=== PATIENT | female | born 1975 | race Caucasian/White ===

== ENCOUNTER 2017-12-10 06:30 | Day surgery (SDC) | payer OTHER ==
[~2017-12-10] VITALS: Ht 170.2 cm; Wt 86.0 kg
[~2017-12-10 06:30] MED LIST: CYCL10TA PO; PERC5TAB12 PO; TRAZ100T10 PO
[2017-12-10] MEDS ORDERED: LACTATED RINGER'S 1000 ML INJ 1,000 ML IV ONE (06:31)
[2017-12-10] MEDS ORDERED: GLYCOPYRROLATE 1 MG/5 ML SYRINGE IV PUSH ONE (06:31)
[2017-12-10] MEDS ORDERED: NEOSTIGMINE 5 MG/5 ML SYRINGE IV PUSH ONE (06:31)
[2017-12-10] MEDS ORDERED: DEXAMETHASONE SOD PHOS 4 MG/ML VIAL IV ONE (06:31)
[2017-12-10] MEDS ORDERED: ONDANSETRON HCL 4 MG/2 ML VIAL IV PUSH ONE (06:31)
[2017-12-10] MEDS ORDERED: ROCURONIUM INJ 50 MG/5 ML SYRINGE IV PUSH ONE (06:31)
[2017-12-10] MEDS ORDERED: PROPOFOL 200 MG/20 ML AMP IV ONE (06:31)
[2017-12-10] MEDS ORDERED: LIDOCAINE HCL 1% PF 5 ML SYRINGE OTHER ONE (06:31)
[2017-12-10] MEDS ORDERED: NORMOSOL R INJ 1,000 ML IV ONE (06:31)
[2017-12-10] MEDS ORDERED: CHLORHEXIDINE GLUCONATE 2 % 1 PACK (2 CLOTHS) TOPICAL PRN (07:00)
[2017-12-10] MEDS ORDERED: LACTATED RINGER'S 1000 ML IV PRN (07:00)
[2017-12-10] MEDS ORDERED: SODIUM CHLORID 0.9% 500 ML IV PRN (07:00)
[2017-12-10] MEDS ORDERED: POVIDONE IODINE 5% (ANTISEPSIS KIT) 4 APPLICATIONS EACH NARE PRN (07:00)
[2017-12-10] MEDS ORDERED: ceFAZolin 2 GM/DEX PREMIX 50 ML IV SCH (07:00)
[2017-12-10] MEDS ORDERED: METOPROLOL TARTRATE 25 MG TAB PO PRN (07:00)
[2017-12-10] MEDS ORDERED: THROMBIN (TOPICAL) 5,000 UNIT VIAL ONE (07:04)
[2017-12-10] MEDS ORDERED: GELFOAM SIZE 100 ONE (07:04)
[2017-12-10] MEDS ORDERED: GENTAMICIN SULFATE 80 MG/2 ML VIAL ONE (07:04)
[2017-12-10] MEDS ORDERED: ACETAMINOPHEN 1000 MG/100 ML 100 ML IV ONE (07:24)
[2017-12-10] MEDS ORDERED: PROPOFOL 500 MG/50 ML INJ 100 ML ONE (07:25)
[2017-12-10] MEDS ORDERED: HYDROmorphone HCL PF 2 MG/ML VIAL ONE (07:25)
[2017-12-10] MEDS ORDERED: VANCOMYCIN 1000 MG/NS 250 ML ON-CALL IV SCH ×2 (07:30)
[2017-12-10] MEDS: SODIUM CHLOR 0.9% 1000 ML INJ 1,000 ML IV SCH ×2 (11:13→20:25)
[2017-12-10] MEDS ORDERED: RESP: ALBUTEROL 2.5 MG/3 ML NEB (PRN) INH (11:15)
[2017-12-10] MEDS ORDERED: MORPHINE SULFATE 4 MG/ML INJ IV PUSH PRN ×2 (11:15)
[2017-12-10] MEDS ORDERED: ACETAMINOPHEN/HYDROcodone 325 MG/10 MG TAB PO PRN (11:15)
[2017-12-10] MEDS ORDERED: MAGNESIUM HYDROXIDE SUSP 30 ML CUP PO PRN (11:15)
[2017-12-10] MEDS ORDERED: CYCLOBENZAPRINE HCL 10 MG TAB PO PRN (11:15)
[2017-12-10] MEDS ORDERED: MENTHOL LOZENGE BUCCAL PRN (11:15)
[2017-12-10] MEDS ORDERED: ceFAZolin 2 GM PREMIX 50 ML IV SCH (11:15)
[2017-12-10] MEDS ORDERED: ACETAMINOPHEN 325 MG TAB PO PRN (11:15)
[2017-12-10] MEDS ORDERED: cloNIDine HCL 0.1 MG TAB PO/NG PRN (11:15)
[2017-12-10] MEDS ORDERED: PROMETHAZINE INJ 25 MG/ML VIAL IM PRN (11:15)
[2017-12-10] MEDS: DEXAMETHASONE SOD PHOS 4 MG/ML VIAL IV PUSH SCH ×2 (12:00→18:04)
[2017-12-10] MEDS ORDERED: MIDAZOLAM HCL 2 MG/2 ML VIAL ONE (12:18)
--- NOTE | 2017-12-10 12:33 | PD.OP ---
Operative Report Date of Surgery: Dec 10, 2017 Preoperative Diagnosis: C4-5. C5-6 disk herniationa Postoperative Diagnosis: C4-5. C5-6 disk herniationa Procedure: C4-5. C5-6 anterior cervical discectomy and arthroplasty using Mobi C Anesthesia: general Surgeon: Sotero Cesar Switchboard Wire Worker Helper(s): Meredith Carbajal Operation and Findings: INDICATIONS FOR THE PROCEDURE Ms Ms Moss is a 42 year-old female who presented with intractable neck pain and clinical evidence of C5 and C6 upper extremity radiculopathy. She was found to have disc herniations causing mass effect on the neurovascular structures. She failed maximum nonsurgical management including multiple modalities of conservative treatment as well as pain management interventions by an interventional pain specialist. A surgical decompression and arthroplasty were indicated. The [id number] details of the procedure, indications, alternatives, risks and potential complications were fully discussed with the patient. She fully understood. All The questions were answered. No guarantees were given. The patient voiced requesting the procedure and provided informed consents. She was offered the alternative of delaying the procedure and continuing with nonsurgical management. DETAILS OF THE SURGICAL PROCEDURE After the induction of general anesthesia, endotracheal intubation was performed. A Aparicio catheter, bilateral CATY hose, and sequential compression devices were placed and kept throughout the procedure. The patient was positioned supine on a Irvin table with the head over a gel doughnut. All pressure points were carefully padded with egg crate mattress. The eyes were tapped shut after ointment was applied by the anesthesiologist to prevent corneal abrasion. A Cristal hugger was placed over the exposed lower body to maintain control of the core body temperature. The electrophysiological team placed the needles and electrodes in their proper location and baseline SSEP's and motor evoked potentials were registered. The anterior cervical region was prepped and draped in the usual sterile fashion. A localizing x-ray was performed with a C-arm. The surgical procedure was performed in several steps as follow: SURGICAL APPROACH A skin incision was made along the middle cervical crease with a #10 blade. The dissection was carried out through the platysma exposing the sternocleidomastoid muscle. The cervical spine was approached following the fascial layers of the neck just medial to the anterior border of the sternocleidomastoid and carotid sheath by a combination of sharp and dull dissection. The omohyoid muscle was identified and carefully dissected laterally and the deep cervical fascia was carefully opened. The longus colli muscles were retracted to each side of the midline. A marker was placed at the disc space C5-6 and a cross-table lateral x-ray performed with a C-arm. SURGICAL DECOMPRESSION at C4-5 In order to decompress the anterior surface of the spinal cord it was necessary to preform a microsurgical resection of the disk. At this point in the procedure the operating microscope was draped in the usual sterile fashion and brought to the field. The rest of the surgical procedure was performed using microdissection technique with the exception of the closure. Under the operative microscopic, an anterior osteophytic spur was carefully removed using the leksell, and a self-retaining retractor was placed underneath the longus colli muscle. The annulus at C4-5 was incised with a #15 blade and microdiscectomy was then carefully carried out using angled curets and pituitary forceps. The patient had a posterior disk herniation which was producing mass affect on the anterior surface of the dural sac. This was carefully resected with a think foot plate 2mm kerrison under high magnification. The posterior longitudinal ligament was then elevated with an angled curet and incised with a 15 bladed knife. A careful resection of the posterior longitudinal ligament was carried out using a thin footplate 2 mm Kerrison. The decompression was then carried out laterally, and a bilateral foraminotomy was performed with a 2mm thin foot Kerrison. Then the vertebral bodies above and below the disk space were undercut using a 2 mm thin foot Kerrison. The epidural space was the systematically assessed with a nerve hook in search for disk fragments. An excellent decompression was achieved in both, the dural sac and bilateral exiting nerve roots. The incision was then irrigated with a large amount of antibiotic solution INTERBODY ARTHROPLASTY at C4-5 In order to avoid collapse of the disk space which would result in bilateral foraminal stenosis, and in order to maintain disk space height and function minimally development of adjacent level degeneration, it was necessary to place an interbody device. At this point of the procedure, gentle distraction was applied. The size of the interbody device was then assessed using a trial, and a cross table xray was done for confirmation of appropriate size and position of the device. Then the disk space was irrigated with antibiotic solution, and a 15mm by 5mm Mobi C artificial disk was carefully impacted into the disc space C4-5. An excellent position of the device was achieved. This was confirmed anatomically by feeling the space posterior to the implant and distance to the anterior surface of the dural sac. Radiological confirmation of the position was performed with a cross table AP and lateral X-ray views, performed with the C-arm. SURGICAL DECOMPRESSION AT 5-C6 At C5-6 an anterior osteophytic spur was carefully removed using the Leksell, and a self-retaining retractor was placed underneath the longus colli muscle. The annulus AT c6-7 was incised with a #15 blade and microdiscectomy was then carefully carried out using angled curets and pituitary forceps. The patient had a osteophitic spurr with a foraminal disk herniation at 5-6 which was producing mass affect on the exiting nerve root. This was carefully dissected with a nerve hock and resected with a think foot plate 2 mm Kerrison under high magnification. The posterior longitudinal ligament was then elevated with an angled curet and incised with a 15 bladed knife. A careful resection of the posterior longitudinal ligament was carried out using a thin footplate 2 mm Kerrison. A disk herniation was found causing mechanical compression over the exiting C6 nerve root. The decompression was then carried out laterally, and a bilateral foraminotomy was performed with a 2 mm thin foot Kerrison. The epidural space was the systematically assessed with a nerve hook in search for disk fragment. An excellent decompression was achieved in both, the dural sac and bilateral exiting nerve roots. The incision was then irrigated with antibiotic solution INTERBODY ARTHROPLASTY at C5-6 In order to avoid collapse of the disk space which would result in bilateral foraminal stenosis, and in order to maintain disk space height and function minimally development of adjacent level degeneration, it was necessary to place an interbody device. At this point of the procedure, gentle distraction was applied at C5-6. The size of the interbody device was then assessed using a trial, and a cross table xray was done for confirmation of appropriate size and position of the device. Then the disk space was irrigated with antibiotic solution, and a 15mm by 5 mm Mobi C artificial disk was carefully impacted into the disc space C5-6. An excellent position of the device was achieved. This was confirmed anatomically by feeling the space posterior to the implant and distance to the anterior surface of the dural sac. Radiological confirmation of the position was performed with a cross table AP and lateral X-ray views, performed with the C- arm. COMPLETION OF THE SURGICAL PROCEDURE Once that each interbody device was in an appropriate position, the distraction was discontinued. The position of the device as well as alignment of the spine were assessed anatomically by direct visualization, and radiologically by performing an AP and lateral X-ray of the cervical spine with the C-arm. The position of both implants was excellent. The incision was irrigated with several liters of antibiotic solution. Hemostasis was achieved with a bipolar. A 7 mm Irvin-Bishop drain was left in the prevertebral space and externalized through a separate stab incision. The incision was then closed in layers. 3-0 Vicryl with interrupted sutures was used to close the platysma and subcutaneous tissue. The skin was closed with 4- 0 running subcuticular Vicryl and Dermabond was applied to the skin. The drain was secured with a 3-0 nylon. At the end of the procedure the sponge, needle and instrument counts were all correct. The estimated blood loss was less than 60-70 cc. No blood transfusion was given. No intraoperative complications occurred. The patient received prophylactic antibiotics. The patient was then extubated and transferred to the recovery room in stable condition. Sotero Cesar MD Dec 10, 2017 12:33
[2017-12-10] MEDS ORDERED: DO NOT ADM ANY ANTICOAGULANT DRUGS PRN (12:45)
[2017-12-10] MEDS ORDERED: HYDR-3583 PO (14:32)
--- NOTE | 2017-12-10 15:19 | EKG ---
Date Performed: 12/10/2017 Time Performed: 06:53:04 PTAGE: 42 years EKG: Sinus rhythm LOW QRS VOLTAGE IN PRECORDIAL LEADS BORDERLINE ECG NO PREVIOUS TRACING DOCTOR: Cailin Holland Interpretating Date/Time 12/10/2017 15:18:20
[2017-12-10 16:00] VITALS: BP 116/69; PULSE 97; RESP 16; TEMP 98.2; O2SAT 98
--- NOTE | 2017-12-10 18:55 | RADRPT ---
EXAM DATE: 12/10/2017 6:14 PM EDT AGE/SEX: 42 years / Female INDICATIONS: Artificial disk placement C4,C5 and C5,C6. CLINICAL DATA: This is the patient's initial encounter. Patient reports that signs and symptoms have been present for 1 day and indicates a pain score of Nonresponsive. MEDICAL/SURGICAL HISTORY: None. None. COMPARISON: No prior exams available for comparison. FINDINGS: AP and lateral views have been obtained from the OR. There are prosthetic discs at the C4-C5 and C5-C 6 levels. These appear well placed. CONCLUSION: Good placement of prosthetic discs. Electronically signed by: Hugh Ramirez MD 12/10/2017 6:54 PM EDT
[2017-12-10] MEDS: ACETAMINOPHEN/HYDROcodone 325 MG/10 MG TAB PO PRN ×2 (19:03→23:09)
[2017-12-10 19:45] VITALS: BP 114/61; PULSE 75; RESP 18; TEMP 98; O2SAT 95
[2017-12-10] MEDS: DOCUSATE SODIUM 100 MG CAP PO SCH (20:11)
[2017-12-10] MEDS: VANCOMYCIN 1,000 MG/NS 250 ML IV SCH ×2 (20:13)
[2017-12-10] MEDS ORDERED: traZODone HCL 100 MG TAB PO SCH (21:00)
[2017-12-11] VITALS: BP 116/63; PULSE 75; RESP 18; TEMP 97.9; O2SAT 96
[2017-12-11] MEDS: DEXAMETHASONE SOD PHOS 4 MG/ML VIAL IV PUSH SCH ×3 (00:24→12:30)
[2017-12-11 04:00] VITALS: BP 104/56; PULSE 59; RESP 18; TEMP 97.2; O2SAT 94
[2017-12-11] MEDS: ACETAMINOPHEN/HYDROcodone 325 MG/10 MG TAB PO PRN ×4 (04:06→15:47)
[2017-12-11] MEDS: SODIUM CHLOR 0.9% 1000 ML INJ 1,000 ML IV SCH (07:13)
[2017-12-11 08:00] VITALS: BP 101/55; PULSE 65; RESP 16; TEMP 97.5; O2SAT 93
[2017-12-11] MEDS ORDERED: PANTOPRAZOLE SOD 40 MG DELAYED RELEASE TAB PO SCH (09:00)
[2017-12-11] MEDS: VANCOMYCIN 1,000 MG/NS 250 ML IV SCH ×2 (09:14)
[2017-12-11] MEDS: DOCUSATE SODIUM 100 MG CAP PO SCH (09:14)
[2017-12-11] MEDS ORDERED: PNEUMOCOCCAL POLYVALENT INJ 25 MCG/0.5 ML SYR IM ONE (10:00)
[2017-12-11] MEDS ORDERED: INFLUENZA VIRUS VACCINE (QUADRIVALENT) 0.5 ML SYR IM ONE (10:00)
[2017-12-11 12:00] VITALS: BP 107/64; PULSE 61; RESP 16; TEMP 98; O2SAT 93
[2017-12-11 12:56] VITALS: RESP 18
--- NOTE | 2017-12-11 13:42 | HHI.NSPN ---
History Chief Complaint: mild ache right hand Interval History ate of Surgery: Dec 10, 2017 Preoperative Diagnosis: C4-5. C5-6 disk herniationa Postoperative Diagnosis: C4-5. C5-6 disk herniationa Procedure: C4-5. C5-6 anterior cervical discectomy and arthroplasty using Mobi C Anesthesia: general Surgeon: Sotero Cesar 12/11/2013: Cervical collar in place. Mild drain output. Neck dressing dry for the past. He is alert. No complaint of difficulty swallowing or hoarse voice. Preoperative upper extremity symptoms mostly resolved except for occasional mild tingling in the hands and some aching right thenar eminence Exam Results Vital Signs Date Time Temp Pulse Resp B/P (MAP) Pulse Ox O2 Delivery O2 Flow Rate FiO2 12/11/17 12:56 18 12/11/17 08:00 97.5 65 101/55 (70) 93 12/10/17 12:15 Nasal Cannula 2 Intake and Output 12/11/17 12/11/17 12/12/17 08:00 16:00 00:00 Intake Total 1100 ml Output Total 5 ml Balance 1095 ml Physical Examination Resting quietly in bed. Neck collar in place Drain in place Dressing dry No significant edema or erythema residual Awake and alert Sensation intact light touch upper extremities Strength within normal limits lumbar extremities Medical Decision Making Impression and Plan Impression: 1. Doing well postop. Plan: Plan discharge home today. Dietary precautions, activity precautions, use of brace, signs and symptoms to watch for fully discussed. Advised no smoking and no NSAIDs. Discontinue drain Home health evaluation Nate Oconnell MD Dec 11, 2017 13:42
--- NOTE | 2017-12-11 13:43 | HHI.DCPOC ---
Discharge Care Plan Diagnosis: (1) Cervical disc disorder with radiculopathy Your Health Problems Are: Difficulty with ADL Incision/Drains Difficulty to Swallow Chronic Pain Goals to Promote Your Health * To prevent worsening of your condition and complications * To maintain your health at the optimal level Directions to Meet Your Goals Take your medications as prescribed Follow your dietary instruction Follow activity as directed Keep your appointments as scheduled Take your immunizations and boosters as scheduled If your symptoms worsen call your PCP, if no PCP go to Urgent Care Center or Emergency Room Smoking is Dangerous to Your Health. Avoid second hand smoke Call the 24-hour hour crisis hotline for domestic abuse at Nate Oconnell MD Dec 11, 2017 13:43
--- NOTE | 2017-12-11 13:45 | HHI.FF ---
Face to Face Verification Diagnosis: (1) Cervical disc disorder with radiculopathy Physical Therapy Order: Evaluate and Treat, Strength and gait training Occupational Therapy Order: Evaluate and Treat, Improve ADL, Gross motor coordination, Fine motor coordination Home Health Nursing Order: Wound care and dressing changes I have seen patient Amber Moss on 12/11/17. My clinical findings support the need for the requested home health care services because: Limited ability to care for self I certify that my clinical findings support that this patient is homebound because: Unsteady gait/balance Unsafe to leave home unassisted Nate Oconnell MD Dec 11, 2017 13:45
--- NOTE | 2017-12-13 10:01 | HHI.DS ---
Discharge Summary Admission Date 12/10/17 Discharge Date: Dec 11, 2017 Admitting Diagnosis s/p anterior cervical discectomy, Mobi C Significant Findings Laboratory Tests Test 12/13/17 01:22 Pt Condition on Discharge: Stable Discharge Disposition: Disch w/ Home Health Serv Discharge Instructions DIET: Follow Instructions for: Heart Healthy Diet, Soft Diet ADDITIONAL Diet Instructions: soft and advance as tolerated ADDITIONAL Activity Instructio: Avoid strenuous activities, heavy lifting over 5 lbs, overhead activities, repetitive bending, twisting, pushing, pulling or any activities which might result in stress over the spine. Avoid situation that will put at risk for falls. Use assistive device as needed for walking. Wear cervical collar at all times, may remove only with meals. Mahi Feng Dec 13, 2017 10:00
== END 2017-12-11 17:06 | disposition home or self-care (01) ==
LOC: HSDC 06:30 → N06A 12:50 → HSDC 12-11 17:06
PROVIDERS: ATTEND Neurological Surgery
DX: M50.121 Cervical disc disorder at C4-C5 level with radiculopathy (principal); G89.29 Other chronic pain; R94.31 Abnormal electrocardiogram [ECG] [EKG]; Z23 Encounter for immunization
CPT/HCPCS: 00600; 22856; 22858; 72040; 76000; 90732; 93005; 94150; 97116; 97162; C1889; G8987; G8988; J0131; J1100; J1170; J1580; J2250; J2405; J2710; J3010; J3370; J7030; J7050; J7120; L0150; L0172